=== PATIENT | male | born 1975 | race Caucasian/White ===

== ENCOUNTER 2024-01-24 16:42 | Emergency (ER) | payer OTHER ==
[~2024-01-24] VITALS: Ht 175.3 cm; Wt 85.7 kg
[2024-01-24 17:05] VITALS: BP 119/71; TEMP 98.4
[2024-01-24] MEDS ORDERED: TAMS-12 PO (17:06)
[2024-01-24] MEDS ORDERED: HYDR25TA4 PO (17:06)
[2024-01-24 17:50] VITALS: O2SAT 96
== END 2024-01-24 17:51 | disposition home or self-care (01) ==
LOC: ER 17:11
DX: Z76.0 Encounter for issue of repeat prescription (principal); Z79.899 Other long term (current) drug therapy